=== PATIENT | male | born 1970 | race African-American/Black ===

== ENCOUNTER 2016-09-06 14:38 | Emergency (ER) | payer SELFPAY ==
[~2016-09-06] VITALS: Ht 172.7 cm; Wt 127.0 kg
[~2016-09-06 14:38] MED LIST: ASPI-231 PO; METO25TA5 PO; RIVA20TA PO
[2016-09-06 15:04] VITALS: BP 135/85
[2016-09-06] MEDS ORDERED: cefTRIAXone SOD 1,000 MG VL IM ONE (17:00)
[2016-09-06] MEDS ORDERED: KETOROLAC TROMETH 60MG/2ML VIAL IM ONE (17:00)
== END 2016-09-06 17:33 | disposition home or self-care (01) ==
LOC: ER 15:01
DX: L03.311 Cellulitis of abdominal wall (principal); I10 Essential (primary) hypertension; Z91.018 Allergy to other foods
CPT/HCPCS: 96372; 99284; J0696; J1885

== ENCOUNTER 2016-09-09 10:33 | Emergency (ER) | payer MEDICAID ==
[~2016-09-09] VITALS: Ht 172.7 cm; Wt 127.0 kg
[2016-09-09 11:49] VITALS: BP 154/78
== END 2016-09-09 12:06 | disposition home or self-care (01) ==
LOC: ER 10:33
DX: L03.314 Cellulitis of groin (principal); I10 Essential (primary) hypertension; Z48.01 Encounter for change or removal of surgical wound dressing; Z91.018 Allergy to other foods

== ENCOUNTER 2016-09-12 10:39 | Emergency (ER) | payer MEDICAID ==
[~2016-09-12] VITALS: Ht 172.7 cm; Wt 127.0 kg
[2016-09-12 13:16] VITALS: BP 144/90
== END 2016-09-12 14:07 | disposition home or self-care (01) ==
LOC: ER 10:41
DX: K65.0 Generalized (acute) peritonitis (principal); I10 Essential (primary) hypertension; Z91.018 Allergy to other foods

== ENCOUNTER 2018-09-30 09:17 | Inpatient (IN) | payer MEDICAID ==
[~2018-09-30] VITALS: Ht 172.7 cm; Wt 149.9 kg
[2018-09-30] MEDS ORDERED: SODIUM CHLORIDE 0.9% 1,000 ML IV ONE (09:33)
[2018-09-30 10:16] LABS: Basophils # (auto) 0.1 uL; Basophils % (auto) 0.7 % (0.0-2.0); Eosinophils # (auto) 0.1 uL; Eosinophils % (auto) 0.7 % (0.0-7.0); Hematocrit 47.1 % (41.0-53.0); Hemoglobin 15.3 g/dL (13.5-17.5); Lymphocytes # (auto) 2.4 uL; Mean Corpuscular Hgb Conc. 32.5 g/dL (32.0-36.0); Mean Corpuscular Volume 86.3 fL (80.0-100.0); Monocytes # (auto) 0.6 uL; Monocytes % (auto) 7.5 % (0.0-12.0); Neutrophils # (auto) 4.5 uL; Neutrophils % (auto) 59.1 % (37.0-80.0); Platelet Count (auto) 242 10^3/uL (140-450); Red Blood Cells 5.46 10^6/uL (4.5-5.90); Red Cell Distribution Width 15.2 % (11.8-14.3); White Blood Cell 7.5 10^3/uL (4.4-10.8)
[2018-09-30 10:21] LABS: Albumin 3.1 g/dL (3.4-5.0); BUN/Creatinine Ratio 18.3; Calcium 8.1 mg/dL (8.5-10.1)
[2018-09-30 10:28] LABS: Bilirubin, Total 0.8 mg/dL (0.2-1.0)
[2018-09-30] MEDS ORDERED: ENOXAPARIN SOD 150 MG/1 ML SYRINGE SC ONE (10:45)
[2018-09-30] MEDS ORDERED: IOHEXOL 350 MG/ML 100ML IJ ONE (10:57)
[2018-09-30 10:58] LABS: INR 1.01 (0.9-1.15); Partial Thromboplastin Time 26.1 sec (23.78-33.04); Prothrombin Time 10.8 sec (9.27-12.13)
[2018-09-30] MEDS ORDERED: TEMAZEPAM 15 MG CAP PO PRN (12:30)
[2018-09-30] MEDS ORDERED: ALBUTEROL SULF 2.5 MG/0.5ML(0.5%) NEB SOLN NEB PRN (12:30)
[2018-09-30] MEDS ORDERED: OSELTAMIVIR 75 MG CAP PO ONE (12:30)
[2018-09-30] MEDS ORDERED: LORazepam 0.5 MG TAB PO PRN (12:30)
[2018-09-30] MEDS ORDERED: LACTULOSE 20Gm/30ML SOLN PO PRN (12:30)
[2018-09-30] MEDS ORDERED: NITROGLYCERIN 0.4 MG SL TAB SL PRN (12:30)
[2018-09-30] MEDS ORDERED: PROMETHAZINE HCL 25 MG/ML 1ML IV PRN (12:30)
[2018-09-30] MEDS ORDERED: MORPHINE SULF INJ 2 MG/ML SYRINGE 1ML IV PRN (12:30)
[2018-09-30] MEDS ORDERED: DIGOXIN (250MCG/ML) 2 ML AMPULE IV ONE (14:00)
[2018-09-30] MEDS ORDERED: FUROSEMIDE 40 MG/4 ML VIAL IV ONE (14:00)
[2018-09-30] MEDS: SODIUM CHLOR 0.9% PF (SALINE LOCK) 10ML VIAL/SYR IV SCH ×2 (14:01→22:00)
--- NOTE | 2018-09-30 14:30 | NUR ---
ASSUMED CARE OF PATIENT PATIENT IS ALERT AND ORIENTED X4. RESPIRATIONS EVEN AND UNLABORED. PATIENT IS SOB WITH EXERTION. PATIENT IS CURRENTLY ON ROOM AIR WITH SATURATION OF 94%. PATIENT IS TELE NUMBER 45 RUNNING AFIB WITH BPM OF 121. ORIENTED PATIENT TO ROOM, UNIT, POLICIES, AND PROCEDURE. DISCUSSED POC CARE. PATIENT VERBALIZED UNDERSTANDING. WILL CONTINUE TO MONITOR Q1 HOUR AND PRN.
--- NOTE | 2018-09-30 14:41 | NUR ---
CALLED PHARMACY PATIENT IS SCHEDULED TO HAVE TAMIFLU THIS EVENING INFLUENZA A AND B ARE NEGATIVE PHARMACIST SAID THEY WOULD REVIEW ORDER
--- NOTE | 2018-09-30 15:40 | NUR ---
C/O RIGHT LOWER JAW ACHE PATIENT C/O OF R LOWER JAW ACHE. PATIENT STATES, "I FRACTURED MY JAW IN 1994, IM MISSING A TOOTH HERE, IT ACTS UP SOMETIMES. I WAS GOING TO GO GET IT TAKEN CARE OF BEFORE ALL OF THIS STARTED, BUT NOW IT'S REALLY BOTHERING ME. " WILL MEDICATE PER EMAR/ M.D. ORDERS
[2018-09-30] MEDS: traMADol HCL 50 MG TAB PO PRN ×2 (15:54→21:58)
[2018-09-30 17:03] VITALS: BP 149/83
--- NOTE | 2018-09-30 17:08 | NUR ---
NASAL CANNULA PATIENT ON NASAL CANNULA. PATIENT HAVING SOB AT REST. PATIENT PUT ON 3L NASAL CANNULA. PATIENT RESTING COMFORTABLY IN BED. HOB ELEVATED. SPO2 IS 99%
[2018-09-30] MEDS: RIVAROXABAN 20 MG TAB PO SCH (17:46)
--- NOTE | 2018-09-30 18:45 | NUR ---
END OF SHIFT PATIENT IS RESTING IN BED EATING DINNER. ALERT AND ORIENTED X4. RESPIRATIONS EVEN AND UNLABORED. NO S/S OF DISTRESS, SOB, OR PAIN. WILL ENDORSE CARE TO CLINICAL LAB ASSISTANT R.N.
[2018-09-30] MEDS: ALBUTEROL SULF 2.5 MG/0.5ML(0.5%) NEB SOLN NEB SCH (19:56)
[2018-09-30] MEDS: IPRATROPIUM BROM 0.5 MG/2.5ML INH SOL NEB SCH (19:56)
--- NOTE | 2018-09-30 20:00 | NUR ---
OPENING SHIFT NOTE: PATIENT IN BED RESTING. NO REPORTS OF SHORTNESS OR BREATH OR CHEST PAIN. HAS TOOTH PAIN IN THE RIGHT LOWER JAW. HE IS AMBULATORY AND A0 X 4. HE IS AWARE OF HIS PLAN OF CARE. WILL CONTINUE TO MONITOR.
--- NOTE | 2018-09-30 20:04 | NUR ---
RT NOTE: PT SEEN BY RT @ THIS TIME. NO SOB OR DISTRESS NOTED @ THIS TIME. PT ON ROOM AIR, SP02 96%, HR 117-125, RR 23, CLEAR/DIMINISHED BS NOTED. PT REFUSED MED NEB @ THIS TIME. PT COMPLAINING OF TOOTH PAIN, RN MADE AWARE. WILL RE-EVALUATE PT @ 0000 FOR SCHEDULED MED NEB.
[2018-09-30 21:54] VITALS: BP 149/100
[2018-09-30] MEDS: OSELTAMIVIR 75 MG CAP PO SCH (22:00)
[2018-09-30] MEDS: CARVEDILOL 12.5 MG TAB PO SCH (22:00)
[2018-09-30 23:38] VITALS: BP 149/100
[2018-10-01] MEDS: IPRATROPIUM BROM 0.5 MG/2.5ML INH SOL NEB SCH ×3 (00:45→12:03)
[2018-10-01] MEDS: ALBUTEROL SULF 2.5 MG/0.5ML(0.5%) NEB SOLN NEB SCH ×3 (00:45→12:03)
--- NOTE | 2018-10-01 00:45 | NUR ---
RT NOTE: PT SEEN BY RT @ THIS TIME FOR MED NEB TX. PT REFUSED TX @ THIS TIME. PT STATED HIS LOWER RIGHT TOOTH/JAW IS IN SEVERE PAIN 04/28. ALSO STATED RN GAVE SOMETHING FOR PAIN 30 MINS PRIOR. NO SOB OR DISTRESS NOTED. SP02 94% ON ROOM AIR, HR 68, RR 22, CLEAR/DIMINISHED BS.
[2018-10-01] MEDS ORDERED: MORPHINE SULF INJ 2 MG/ML SYRINGE 1ML IV PRN (03:15)
[2018-10-01 05:25] VITALS: BP 144/98
[2018-10-01] MEDS: SODIUM CHLOR 0.9% PF (SALINE LOCK) 10ML VIAL/SYR IV SCH ×3 (05:35→21:12)
[2018-10-01 06:47] LABS: Potassium 3.7 mmol/L (3.5-5.1)
[2018-10-01 07:00] LABS: Albumin 2.8 g/dL (3.4-5.0); BUN/Creatinine Ratio 20.2; Calcium 7.7 mg/dL (8.5-10.1)
[2018-10-01 07:03] LABS: Bilirubin, Total 0.7 mg/dL (0.2-1.0); Total Protein 6.5 g/dL (6.4-8.2)
--- NOTE | 2018-10-01 07:28 | NUR ---
OPENING SHIFT PATIENT IS SLEEPING IN BED. NO S/S OF DISTRESS, SOB, OR PAIN. BED IS IN LOWEST POSITION, SIDE RAILS UP X2, AND CALL LIGHT WITHIN REACH. WILL CONTINUE TO MONITOR Q1 HOUR AND PRN.
[2018-10-01 09:00] VITALS: BP 150/115
[2018-10-01] MEDS ORDERED: LEVOFLOXACIN 500MG 100 ML IV SCH (10:00)
[2018-10-01] MEDS ORDERED: FUROSEMIDE 40 MG/4 ML VIAL IV SCH (10:00)
[2018-10-01] MEDS: POTASSIUM CHL 20 Meq TABLET PO SCH (10:58)
[2018-10-01] MEDS: PANTOPRAZOLE 40 MG TAB PO SCH (10:58)
[2018-10-01] MEDS: CARVEDILOL 12.5 MG TAB PO SCH ×2 (10:58→21:40)
[2018-10-01] MEDS: ASPirin 81 mg TAB PO SCH (10:58)
[2018-10-01] MEDS: ENALAPRIL MALEATE 2.5 MG TAB PO SCH (10:59)
[2018-10-01 12:52] VITALS: BP 130/90
[2018-10-01] MEDS ORDERED: DIGOXIN (250MCG/ML) 2 ML AMPULE IV ONE (15:45)
[2018-10-01 17:00] VITALS: BP 124/81
[2018-10-01] MEDS: RIVAROXABAN 20 MG TAB PO SCH (18:35)
--- NOTE | 2018-10-01 18:53 | NUR ---
END OF SHIFT NO S/S OF DISTRESS, SOB, OR PAIN. RESPIRATIONS EVEN AND UNLABORED. BED IS IN LOWEST POSITION, SIDE RAILS UP X2, AND CALL LIGHT WITHIN REACH. WILL ENDORSE CARE TO CHILD NUTRITION ASSISTANT RN
--- NOTE | 2018-10-01 19:25 | NUR ---
Opening Shift Note Assumed care of patient, awake and alert. No S/S of distress/SOB. Patient reporting pain to lower jaw, will medicate as ordered. Bed in lowest locked position, side rails up x2, call light within reach. Instructed on POC and to call for assist PRN, will continue to monitor for changes Q1hr and PRN.
--- NOTE | 2018-10-01 20:58 | NUR ---
Respiratory note: At bedside to assess for prn tx. Tx not indicated at this time. Bs are clear t/o. Pox 98% on 2lpm, HR 93, Rt name and pager assignment written on pts room board. Will continue to monitor as needed.
[2018-10-01 22:02] VITALS: BP 147/87
--- NOTE | 2018-10-01 23:55 | NUR ---
Hospitalist Paged Patient reporting 02/26 lower jaw pain. Per patient, he "broke [his lower jaw] back in 1994 playing baseball. I've got metal in there to fix it. It started hurting just before all this started, I was going to have somebody fix it but then I came here." Morphine administered as ordered, see emar, patient reports no decrease in pain. Ultram offered as ordered, patient refusing stating that it "didn't help" when he had it yesterday. Hot pack provided to patient. Hospitalist paged, awaiting call back at this time.
--- NOTE | 2018-10-02 00:52 | NUR ---
Hospitalist Returned Page Aroldo Rogers MANAGEMENT MANAGER returned page at this time, new orders to discontinue Ultram and new order received for one tablet of Iron Belt 10 every eight hours as needed for pain. All orders read back and verified, will implement as ordered.
[2018-10-02] MEDS ORDERED: HYDROcodone-ACET 10/325MG TAB PO PRN (01:00)
[2018-10-02] MEDS: HYDROcodone-ACET 10/325MG TAB PO PRN ×2 (01:19→21:05)
[2018-10-02 04:45] VITALS: BP 102/64
[2018-10-02] MEDS: SODIUM CHLOR 0.9% PF (SALINE LOCK) 10ML VIAL/SYR IV SCH ×3 (05:41→21:03)
--- NOTE | 2018-10-02 07:11 | NUR ---
Closing Note Patient lying in bed, awake and alert. No s/s of distress. Care endorsed to dayshift RN.
[2018-10-02 09:00] VITALS: BP 143/100
[2018-10-02] MEDS: PANTOPRAZOLE 40 MG TAB PO SCH (09:46)
[2018-10-02] MEDS: POTASSIUM CHL 20 Meq TABLET PO SCH (09:46)
[2018-10-02] MEDS: DIGOXIN 0.125 MG TAB PO SCH (09:47)
[2018-10-02] MEDS: ASPirin 81 mg TAB PO SCH (09:47)
[2018-10-02] MEDS: ENALAPRIL MALEATE 2.5 MG TAB PO SCH (09:47)
[2018-10-02] MEDS: CARVEDILOL 12.5 MG TAB PO SCH ×2 (09:48→21:06)
--- NOTE | 2018-10-02 10:44 | NUR ---
ASSESSED PT PER PRN TX. NO TREATMENT NECESSARY AT THIS TIME. PT SPO2 ON 2LNC 100%. RR 18, HR 88. BS CLEAR THROUGHOUT.
[2018-10-02 11:51] LABS: Urine Bacteria NONE SEEN /hpf (None Seen); Urine Blood Negative /uL (Negative); Urine Mucus FEW (None Seen); Urine Specific Gravity 1.026 (1.001-1.035); Urine WBC 3 /hpf (0 - 3)
[2018-10-02 11:56] LABS: Alcohol, Urine < 3.0 mg/dL (0-5); Amphetamine Screen, Urine NEGATIVE (NEGATIVE); Barbiturate Scree,Urine NEGATIVE (NEGATIVE); Benzodiazephine Screen, Urine NEGATIVE (NEGATIVE); Cannabinoid Screen, Urine NEGATIVE (NEGATIVE); Cocaine Screen, Urine NEGATIVE (NEGATIVE); Opiate Scree,Urine POSITIVE (NEGATIVE); Phencyclidine Screen, Urine NEGATIVE (NEGATIVE)
[2018-10-02 13:02] VITALS: BP 151/99
[2018-10-02 16:45] VITALS: BP 127/94
--- NOTE | 2018-10-02 16:47 | NUR ---
PT SEEN BY DR. NUNEZ
[2018-10-02] MEDS ORDERED: FUROSEMIDE 40 MG/4 ML VIAL IV ONE (17:00)
[2018-10-02] MEDS: RIVAROXABAN 20 MG TAB PO SCH (17:31)
--- NOTE | 2018-10-02 19:45 | NUR ---
Opening Shift Note Assumed care of patient, awake and alert, sitting up on side of bed. No S/S of distress/SOB. Patient reporting pain to lower jaw, will medicate as ordered. Bed in lowest locked position, side rails up x2, call light within reach. Instructed on POC and to call for assist PRN, will continue to monitor for changes Q1hr and PRN.
--- NOTE | 2018-10-02 21:51 | NUR ---
Respiratory note: PT ASSESSED FOR PRN MED RR 18, SPO2 99% 2L NC, BS CLEAR/DIMINISHED. NO SIGNS OF ANY RESPIRATORY DISTRESS NOTED. ADVISED PT TO PLEASE CALL IF NEEDED.
[2018-10-03 04:52] VITALS: BP 132/83
[2018-10-03] MEDS: SODIUM CHLOR 0.9% PF (SALINE LOCK) 10ML VIAL/SYR IV SCH ×2 (05:48→14:00)
--- NOTE | 2018-10-03 07:10 | NUR ---
Closing Note Patient lying in bed, awake and alert. No s/s of distress. Care endorsed to dayshift RN.
--- NOTE | 2018-10-03 07:52 | NUR ---
PAIN PT COMPLAINING OF TOOTHACHE 03/29, WILL GIVE PAIN MEDICATION ORDERED.
[2018-10-03] MEDS: HYDROcodone-ACET 10/325MG TAB PO PRN (07:55)
[2018-10-03 09:03] VITALS: BP 132/77
[2018-10-03] MEDS ORDERED: FUROSEMIDE 20 MG TAB PO SCH (10:00)
[2018-10-03] MEDS: POTASSIUM CHL 20 Meq TABLET PO SCH (10:12)
[2018-10-03] MEDS: PANTOPRAZOLE 40 MG TAB PO SCH (10:12)
[2018-10-03] MEDS: DIGOXIN 0.125 MG TAB PO SCH (10:13)
[2018-10-03] MEDS: ENALAPRIL MALEATE 2.5 MG TAB PO SCH (10:13)
[2018-10-03] MEDS: ASPirin 81 mg TAB PO SCH (10:14)
[2018-10-03] MEDS: CARVEDILOL 12.5 MG TAB PO SCH (10:14)
--- NOTE | 2018-10-03 12:06 | NUR ---
RT note: PT awake and alert. No sob/resp.distress noted at this time. No PRN TX needed at this time. PT on room air with sats=97%, RR=14, HR=89, B/S clear bilateral. Informed PT if sob occurs to notify RN for PRN TX. PT understood.
[2018-10-03 13:00] VITALS: BP 132/78
--- NOTE | 2018-10-03 13:38 | NUR ---
OXYGEN SATURATION 99% ON ROOM AIR
[2018-10-03 13:46] VITALS: BP 132/77
--- NOTE | 2018-10-03 15:30 | NUR ---
Discharge instructions given as ordered. Encourage to follow up with [facility], PT GIVEN INFORMATION FOR TELEPHONE NUMBER, AND ADDRESS, PT INSTRUCTED TO CALL [facility] ON THURSDAY TO HELP HIM WITH HIS APPOINTMENT AND INSURANCE , TELEPHONE NUMBER PROVIDED. All questions and concerns addressed. Patient verbalized understanding. Medication reconciliation form completed and copy given to patient. IV removed with catheter intact, pressure dressing applied. Telemetry unit returned to ICU. Patient PREFERRED TO WALK to vehicle with all personal belongings, accompanied by staff TO THE LOBBY. No distress noted at time of departure.
== END 2018-10-03 17:00 | disposition home or self-care (01) | DRG 139 ==
LOC: ER 09:17 → TELE 12:27 → TELE-WESTW 14:29
PROVIDERS: ADMIT Internal Medicine; ATTEND Internal Medicine Pulmonary Disease
DX: J18.1 Lobar pneumonia, unspecified organism (principal); I50.23 Acute on chronic systolic (congestive) heart failure; E44.0 Moderate protein-calorie malnutrition; I42.0 Dilated cardiomyopathy; E66.01 Morbid (severe) obesity due to excess calories; I48.2 Chronic atrial fibrillation; Z68.43 Body mass index [BMI] 50.0-59.9, adult; I11.0 Hypertensive heart disease with heart failure; Z91.018 Allergy to other foods; Z82.49 Family history of ischemic heart disease and other diseases of the circulatory system
CPT/HCPCS: 36415; 71045; 71046; 71275; 80053; 80061; 80307; 81001; 82550; 83880; 84484; 85025; 85379; 85610; 85652; 85730; 86141; 87040; 87804; 93005; 93306; 94640; 96361; 96372; 96374; 96375; G0378; J1956